=== PATIENT | male | born 1965 | race African-American/Black ===

== ENCOUNTER 2016-12-01 06:34 | Observation (INO) | payer MEDICARE, MEDICAID ==
[~2016-12-01] VITALS: Ht 185.4 cm; Wt 69.3 kg
[~2016-12-01 06:34] MED LIST: ASPI-515 PO; ASPI-650 PO; BUSP5TAB2 PO; CEPH-368 PO; DIAZ2TAB PO; LEVO500T33 PO; LEVO750T26 PO; LOSA25TA2 PO; LOSA25TA5 PO; NICO1PAT5 TD; OMEP-110 PO; ONDA4TAB10 PO; OXYC-302 PO; OXYC1TAB7 PO; OXYC30TA66 PO; OXYC5CAP4 PO; PREG25CA PO; SACC250C PO; SUCR1ORA2 PO; TRAZ100T15 PO; ZOLP10TA PO
[2016-12-01] MEDS ORDERED: LORazepam 1MG TABLET PO ONE (07:30)
[2016-12-01] MEDS ORDERED: LORazepam 1MG TABLET ONE (08:11)
[2016-12-01] MEDS ORDERED: IBUPROFEN 200 MG TABLET ONE (08:26)
[2016-12-01] MEDS ORDERED: IBUPROFEN 200 MG TABLET PO ONE (08:30)
[2016-12-01] MEDS ORDERED: ONDANSETRON ODT 4 MG PO ONE (09:00)
[2016-12-01] MEDS ORDERED: ONDANSETRON ODT 4 MG ONE (09:21)
[2016-12-01] MEDS ORDERED: SODIUM CHLORIDE FLUSH 10ML SYR IVF ONE (10:00)
[2016-12-01] MEDS ORDERED: SODIUM CHLORIDE 0.9% 1,000ML IVBOLUS ONE (10:00)
[2016-12-01 10:12] LABS: ASPARTATE AMINO TRANSFERASE 46 U/L (15-37); BLOOD UREA NITROGEN 4 mg/dL (7-18)
[2016-12-01] MEDS ORDERED: ONDANSETRON 2MG/ML, 2ML IVPush ONE (10:30)
[2016-12-01] MEDS ORDERED: ONDANSETRON 2MG/ML, 2ML ONE (10:46)
[2016-12-01] MEDS ORDERED: FAMOTIDINE 20 MG/2 ML IVPush ONE (11:00)
[2016-12-01] MEDS ORDERED: FAMOTIDINE 20 MG/2 ML ONE (11:12)
[2016-12-01] MEDS ORDERED: MORPHINE SULFATE 4 MG/ML, 1ML ONE (11:26)
[2016-12-01] MEDS ORDERED: MORPHINE SULFATE 4 MG/ML, 1ML IVPush PRN (11:30)
[2016-12-01] MEDS ORDERED: PROMETHAZINE 25 MG/ML, 1ML ONE (11:35)
[2016-12-01] MEDS ORDERED: PROMETHAZINE 25 MG/ML, 1ML IM ONE (12:00)
[2016-12-01] MEDS ORDERED: ACETAMINOPHEN 325 MG TABLET PO PRN (12:30)
[2016-12-01] MEDS ORDERED: HYDROcodone/APAP 5/325 TABLET PO PRN (12:30)
[2016-12-01] MEDS ORDERED: LABETALOL 5MG/ML, 20ML IVPush PRN (12:30)
[2016-12-01] MEDS ORDERED: OMNIPAQUE 350 MG/ML, 100ML BOTTLE ONE (13:23)
[2016-12-01 13:52] VITALS: BP 158/94
[2016-12-01] MEDS: ONDANSETRON 2MG/ML, 2ML IVPush PRN (14:19)
[2016-12-01] MEDS: morphine SULFATE 10 MG/ML, 1ML IVPush PRN ×3 (14:20→21:09)
[2016-12-01] MEDS ORDERED: NS + 20MEQ KCL 1,000 ML IV SCH (14:30)
[2016-12-01 17:20] LABS: OCCBLD OBC PASS
[2016-12-01] MEDS: SUCRALFATE 1 GM/10 ML UDC PO SCH ×2 (17:44→21:08)
[2016-12-01 20:02] VITALS: BP 160/99
[2016-12-01] MEDS: NICOTINE 21 MG/24 HR PATCH.TD24 TD SCH (21:09)
[2016-12-02] MEDS: morphine SULFATE 10 MG/ML, 1ML IVPush PRN ×3 (00:07→06:21)
[2016-12-02] MEDS: ONDANSETRON 2MG/ML, 2ML IVPush PRN ×2 (00:07→06:20)
[2016-12-02 01:18] VITALS: BP 144/95
[2016-12-02 05:44] LABS: BLOOD UREA NITROGEN 3 mg/dL (7-18)
[2016-12-02 06:56] VITALS: BP 141/91
[2016-12-02] MEDS ORDERED: PANTOPRAZOLE 40 MG IV IVPush SCH (07:30)
[2016-12-02] MEDS: NICOTINE 21 MG/24 HR PATCH.TD24 TD SCH (07:39)
[2016-12-02] MEDS: SUCRALFATE 1 GM/10 ML UDC PO SCH ×2 (07:39→10:27)
[2016-12-02] MEDS ORDERED: ONDA4TAB10 PO (08:13)
[2016-12-02] MEDS ORDERED: OMEP-110 PO (08:28)
== END 2016-12-02 12:14 | disposition home or self-care (01) ==
LOC: ED 07:35 → EDIP 11:58 → INTOOBSV 11:58 → UNDOADMOB 11:58 → EDIP 12:30 → 3NE 14:09
PROVIDERS: ADMIT Internal Medicine; ATTEND Internal Medicine
DX: K92.0 Hematemesis (principal); R19.7 Diarrhea, unspecified; F31.9 Bipolar disorder, unspecified; B19.20 Unspecified viral hepatitis C without hepatic coma; F10.10 Alcohol abuse, uncomplicated; F17.210 Nicotine dependence, cigarettes, uncomplicated; K25.9 Gastric ulcer, unspecified as acute or chronic, without hemorrhage or perforation; I11.9 Hypertensive heart disease without heart failure; M50.30 Other cervical disc degeneration, unspecified cervical region; M51.36 Other intervertebral disc degeneration, lumbar region; Z87.11 Personal history of peptic ulcer disease; Z91.19 Patient's noncompliance with other medical treatment and regimen; Z89.512 Acquired absence of left leg below knee; Z89.511 Acquired absence of right leg below knee
CPT/HCPCS: 36415; 71020; 72110; 72190; 74177; 80048; 80053; 81003; 82272; 83690; 85014; 85018; 85025; 87324; 96361; 96372; 96374; 96375; 96376; 99285; C9113; G0378; J2270; J2405; J2550; J3480; J7030; Q0162; Q9967; S0028

== ENCOUNTER 2017-01-10 20:29 | Emergency (ER) | payer MEDICARE, MEDICAID ==
[~2017-01-10] VITALS: Ht 185.4 cm; Wt 72.0 kg
[2017-01-10] MEDS ORDERED: OXYcodone/APAP 10/325MG TABLET ONE (22:15)
[2017-01-10] MEDS ORDERED: OXYcodone/APAP 10/325MG TABLET PO ONE (22:30)
[2017-01-10] MEDS ORDERED: BACITRACIN OINT 500U/GM, 15 GM TP ONE (22:30)
[2017-01-10] MEDS ORDERED: BACITRACIN ZINC OINT 500U/GM, 0.9 GM ONE (22:41)
[2017-01-10 23:08] VITALS: BP 116/69
== END 2017-01-10 23:09 | disposition home or self-care (01) ==
LOC: ED 21:34
DX: M25.561 Pain in right knee (principal); M25.562 Pain in left knee; L89.899 Pressure ulcer of other site, unspecified stage; Z89.512 Acquired absence of left leg below knee; Z89.511 Acquired absence of right leg below knee; I11.0 Hypertensive heart disease with heart failure; I50.9 Heart failure, unspecified; Z90.5 Acquired absence of kidney
CPT/HCPCS: 82962; 99283

== ENCOUNTER 2017-05-20 17:16 | Inpatient (IN) | payer MEDICARE, MEDICAID ==
[~2017-05-20] VITALS: Ht 185.4 cm; Wt 73.7 kg
[~2017-05-20 17:16] MED LIST changes: -LEVO500T33 PO; +LEVO500T47 PO; +NICO-487 TD; -NICO1PAT5 TD; +OXYC5CAP2 PO; -OXYC5CAP4 PO; -SACC250C PO; +SACC250C4 PO; -SUCR1ORA2 PO; +SUCR1ORA5 PO
[2017-05-20] MEDS ORDERED: SODIUM CHLORIDE FLUSH 10ML SYR IVF ONE (17:30)
[2017-05-20] MEDS ORDERED: LABETALOL 5MG/ML, 20ML IVPush ONE (18:00)
[2017-05-20] MEDS ORDERED: SODIUM CHLORIDE 0.9% 1,000ML IVBOLUS ONE ×2 (18:00→18:30)
[2017-05-20] MEDS ORDERED: PLEASE ENTER HEIGHT MC SCH (18:00)
[2017-05-20 18:12] LABS: HEMOGLOBIN 15.8 g/dL (13.7-18.0); WHITE BLOOD COUNT 11.3 x10^3/uL (3.4-10)
[2017-05-20] MEDS ORDERED: morphine SULFATE 10 MG/ML, 1ML ONE ×2 (18:17→18:47)
[2017-05-20] MEDS ORDERED: ONDANSETRON 2MG/ML, 2ML ONE (18:17)
[2017-05-20] MEDS ORDERED: LABETALOL 5MG/ML, 20ML ONE (18:17)
[2017-05-20] MEDS: MORPHINE SULFATE 4 MG/ML, 1ML IVPush PRN ×2 (18:21→18:50)
[2017-05-20 18:23] LABS: BLOOD UREA NITROGEN 6 mg/dL (7-18)
[2017-05-20] MEDS ORDERED: OMNIPAQUE 350 MG/ML, 100ML BOTTLE ONE (18:29)
[2017-05-20] MEDS ORDERED: ONDANSETRON 2MG/ML, 2ML IVPush ONE (18:30)
[2017-05-20 18:35] LABS: IS PT STATUS REG ER OR PRE ER? YES
[2017-05-20] MEDS ORDERED: morphine SULFATE 10 MG/ML, 1ML IV PRN (19:00)
[2017-05-20] MEDS ORDERED: LORazepam 2 MG/ML, 1ML IVPush PRN (19:00)
[2017-05-20] MEDS ORDERED: NITROGLYCERIN 0.4 MG/SPRAY SL PRN (19:00)
[2017-05-20] MEDS ORDERED: FAMOTIDINE 20 MG/2 ML IVPush ONE (19:00)
[2017-05-20] MEDS ORDERED: NICOTINE 14MG/24 HR PATCH.TD24 TD ONE (19:00)
[2017-05-20] MEDS ORDERED: THIAMINE 100MG TABLET PO ONE (19:00)
[2017-05-20] MEDS ORDERED: hydrALAzine 20 MG/ML, 1ML IV PRN (19:00)
[2017-05-20 19:36] LABS: IS PT STATUS REG ER OR PRE ER? YES
[2017-05-20 21:05] VITALS: BP 164/68
[2017-05-20 21:38] VITALS: BP 139/95
[2017-05-20] MEDS: NITROGLYCERIN 0.4 MG BOTTLE (25 TABS) SL PRN ×2 (21:46→21:54)
[2017-05-20 21:51] VITALS: BP 104/74
[2017-05-20 21:59] VITALS: BP 107/70
[2017-05-20] MEDS: SODIUM CHLORIDE FLUSH 10ML SYR IVF SCH (22:23)
[2017-05-20 22:50] LABS: IS PT STATUS REG ER OR PRE ER? NO
[2017-05-20] MEDS: morphine SULFATE 10 MG/ML, 1ML IV PRN (23:13)
[2017-05-21 01:24] LABS: IS PT STATUS REG ER OR PRE ER? NO
[2017-05-21 01:42] VITALS: BP 125/82
[2017-05-21] MEDS ORDERED: ASPIRIN 325 MG TABLET ONE (03:11)
[2017-05-21] MEDS ORDERED: ASPIRIN 325 MG TABLET EC ONE (03:13)
[2017-05-21] MEDS: morphine SULFATE 10 MG/ML, 1ML IV PRN ×3 (03:18→09:57)
[2017-05-21] MEDS: ASPIRIN 325 MG TABLET EC PO SCH (03:18)
[2017-05-21] MEDS ORDERED: REGADENOSON 0.4 MG/5 ML SYRINGE ONE (07:36)
[2017-05-21 08:28] VITALS: BP 134/88
[2017-05-21] MEDS: SODIUM CHLORIDE FLUSH 10ML SYR IVF SCH ×2 (09:57→19:44)
[2017-05-21] MEDS: HYDROcodone/APAP 5/325 TABLET PO PRN ×2 (12:49→17:25)
[2017-05-21 13:59] VITALS: BP 157/90
[2017-05-21 19:18] VITALS: BP 129/86
[2017-05-21] MEDS ORDERED: GADOBUTROL 7.5 MMOL/7.5 ML PFS ONE (19:45)
[2017-05-22 01:57] VITALS: BP 119/86
[2017-05-22] MEDS: HYDROcodone/APAP 5/325 TABLET PO PRN (02:13)
[2017-05-22 06:11] LABS: HEMATOCRIT 45.5 % (39.2-51.8); HEMOGLOBIN 14.9 g/dL (13.7-18.0); WHITE BLOOD COUNT 8.2 x10^3/uL (3.4-10)
[2017-05-22 06:31] LABS: ASPARTATE AMINO TRANSFERASE 49 U/L (15-37); BLOOD UREA NITROGEN 10 mg/dL (7-18)
[2017-05-22 07:19] VITALS: BP 125/87
[2017-05-22] MEDS: OXYcodone/APAP 10/325MG TABLET PO PRN ×3 (08:19→16:03)
[2017-05-22] MEDS: SODIUM CHLORIDE FLUSH 10ML SYR IVF SCH (08:19)
[2017-05-22] MEDS: ASPIRIN 325 MG TABLET EC PO SCH (08:19)
[2017-05-22] MEDS ORDERED: OXYC1TAB9 PO (14:10)
[2017-05-22] MEDS ORDERED: ASPI-496 PO (14:10)
[2017-05-22 14:15] VITALS: BP 132/91
[2017-05-22] MEDS ORDERED: FLU VACC QS2017-18 (36MOS+) UP/PF 0.5 ML IM-VACC ONE (14:30)
== END 2017-05-22 16:36 | disposition home or self-care (01) | DRG 304 ==
LOC: ED 18:50 → EDIP 18:53 → 5SO 20:03
PROVIDERS: ADMIT Family Medicine; ATTEND Family Medicine
DX: I16.9 Hypertensive crisis, unspecified (principal); I63.9 Cerebral infarction, unspecified; M48.54XA Collapsed vertebra, not elsewhere classified, thoracic region, initial encounter for fracture; I11.0 Hypertensive heart disease with heart failure; I50.9 Heart failure, unspecified; R07.89 Other chest pain; D72.829 Elevated white blood cell count, unspecified; G89.4 Chronic pain syndrome; F17.210 Nicotine dependence, cigarettes, uncomplicated; F31.9 Bipolar disorder, unspecified; R29.6 Repeated falls; R29.810 Facial weakness; Z82.49 Family history of ischemic heart disease and other diseases of the circulatory system; Z87.11 Personal history of peptic ulcer disease; Z89.519 Acquired absence of unspecified leg below knee; Z90.5 Acquired absence of kidney; Z98.1 Arthrodesis status; Z88.8 Allergy status to other drugs, medicaments and biological substances; Z23 Encounter for immunization
CPT/HCPCS: 36415; 70553; 71010; 71275; 74175; 78452; 80048; 80053; 80061; 82040; 82607; 83605; 84484; 85025; 85651; 87324; 90686; 93005; 93017; 93880; 96361; 96374; 96375; A9585; J2405; J2785; Q9967; A9502; C9898; J2060; J2270; J7030; S0028

== ENCOUNTER 2017-07-07 18:30 | Emergency (ER) | payer MEDICARE, MEDICAID ==
[~2017-07-07] VITALS: Ht 185.4 cm; Wt 80.0 kg
[~2017-07-07 18:30] MED LIST changes: +ASPI-496 PO; +OXYC1TAB9 PO
[2017-07-07 22:15] VITALS: BP 97/70
== END 2017-07-07 23:09 | disposition home or self-care (01) ==
LOC: ED 23:03
DX: S16.1XXA Strain of muscle, fascia and tendon at neck level, initial encounter (principal); M47.892 Other spondylosis, cervical region; I10 Essential (primary) hypertension; G89.29 Other chronic pain; M54.9 Dorsalgia, unspecified; Z89.511 Acquired absence of right leg below knee; W01.0XXA Fall on same level from slipping, tripping and stumbling without subsequent striking against object, initial encounter; Y93.89 Activity, other specified; Y99.8 Other external cause status; Y92.89 Other specified places as the place of occurrence of the external cause
CPT/HCPCS: 93005; 99283

== ENCOUNTER 2017-08-10 15:25 | Emergency (ER) | payer MEDICARE, MEDICAID ==
[~2017-08-10] VITALS: Ht 177.8 cm; Wt 76.5 kg
[2017-08-10] MEDS ORDERED: KETOROLAC 30 MG/1 ML IM ONE (17:00)
[2017-08-10] MEDS ORDERED: KETOROLAC 30 MG/1 ML ONE (17:01)
[2017-08-10 18:50] VITALS: BP 144/98
== END 2017-08-10 18:52 | disposition home or self-care (01) ==
LOC: ED 18:46
DX: S80.811A Abrasion, right lower leg, initial encounter (principal); L03.115 Cellulitis of right lower limb; I50.9 Heart failure, unspecified; I11.0 Hypertensive heart disease with heart failure; G89.29 Other chronic pain; E78.5 Hyperlipidemia, unspecified; Z89.511 Acquired absence of right leg below knee; Z89.512 Acquired absence of left leg below knee; Z98.1 Arthrodesis status; X58.XXXA Exposure to other specified factors, initial encounter; Y93.89 Activity, other specified; Y92.89 Other specified places as the place of occurrence of the external cause; Y99.8 Other external cause status
CPT/HCPCS: 72050; 73564; 96372; 99284; J1885

== ENCOUNTER 2017-09-26 19:03 | Emergency (ER) | payer MEDICARE, MEDICAID ==
[~2017-09-26] VITALS: Ht 177.8 cm; Wt 70.0 kg
[2017-09-26] MEDS ORDERED: METHOCARBAMOL 750 MG TABLET ONE (19:56)
[2017-09-26] MEDS ORDERED: ONDANSETRON ODT 4 MG ONE (19:57)
[2017-09-26] MEDS ORDERED: METHOCARBAMOL 750 MG TABLET PO ONE (20:00)
[2017-09-26] MEDS ORDERED: ONDANSETRON ODT 4 MG PO ONE (20:00)
[2017-09-26 20:12] LABS: BASOPHILS # (AUTO) 0.04 x10^3/uL (0-0.1); BASOPHILS % (AUTO) 0 % (0-1); EOSINOPHILS # (AUTO) 0.37 x10^3/uL (0-0.4); EOSINOPHILS % (AUTO) 4 % (1-7); LYMPHOCYTES # (AUTO) 2.99 x10^3/uL (1-3.4); LYMPHOCYTES % (AUTO) 35 % (22-44); MD NO; MEAN CORPUSCULAR HEMOGLOBIN 29.2 pg (27.5-34.5); MEAN CORPUSCULAR VOLUME 88.5 fL (81-97); MEAN PLATELET VOLUME 8.8 fL (7.4-10.4); MONOCYTES # (AUTO) 0.58 x10^3/uL (0.2-0.8); MONOCYTES % (AUTO) 7 % (2-9); NEUTROPHILS % (AUTO) 53 % (42-75); PLATELET COUNT 346 x10^3/uL (130-400); RED BLOOD COUNT 4.48 x10^6/uL (4.38-5.82); RED CELL DISTRIBUTION WIDTH 16.7 % (9.4-14.8)
[2017-09-26 20:17] LABS: ALANINE AMINOTRANSFERASE 37 U/L (12-78); ALBUMIN 3.2 g/dL (3.4-5.0); ANION GAP 8 mmol/L (5-15); CHLORIDE 108 mmol/L (98-107); CREATININE 0.75 mg/dL (0.7-1.3)
[2017-09-26 20:19] LABS: ALKALINE PHOSPHATASE 70 U/L (45-117); BILIRUBIN,TOTAL 0.2 mg/dL (0.2-1.0)
[2017-09-26 21:49] VITALS: BP 120/83
== END 2017-09-26 21:55 | disposition home or self-care (01) ==
LOC: ED 20:19
DX: S39.012A Strain of muscle, fascia and tendon of lower back, initial encounter (principal); S16.1XXA Strain of muscle, fascia and tendon at neck level, initial encounter; F17.200 Nicotine dependence, unspecified, uncomplicated; F31.9 Bipolar disorder, unspecified; M51.36 Other intervertebral disc degeneration, lumbar region; X58.XXXA Exposure to other specified factors, initial encounter; Y93.89 Activity, other specified; Y99.8 Other external cause status; Y92.89 Other specified places as the place of occurrence of the external cause
CPT/HCPCS: 36415; 72110; 80053; 83690; 85025; 99285; Q0162

== ENCOUNTER 2017-09-29 11:20 | Emergency (ER) | payer MEDICARE, MEDICAID ==
[~2017-09-29] VITALS: Ht 177.8 cm; Wt 70.0 kg
[2017-09-29 12:47] LABS: MEAN CORPUSCULAR HEMOGLOBIN 28.2 pg (27.5-34.5); MEAN CORPUSCULAR HGB CONC 32.3 g/dL (33.2-36.2); MEAN CORPUSCULAR VOLUME 87.3 fL (81-97); MEAN PLATELET VOLUME 9.1 fL (7.4-10.4); PLATELET COUNT 335 x10^3/uL (130-400); RED BLOOD COUNT 4.32 x10^6/uL (4.38-5.82); RED CELL DISTRIBUTION WIDTH 16.6 % (9.4-14.8)
[2017-09-29 12:48] LABS: ALANINE AMINOTRANSFERASE 26 U/L (12-78); ALBUMIN 2.9 g/dL (3.4-5.0); ANION GAP 6 mmol/L (5-15); CALCIUM 8.6 mg/dL (8.5-10.1); CHLORIDE 110 mmol/L (98-107)
[2017-09-29 12:51] LABS: ALKALINE PHOSPHATASE 61 U/L (45-117); BILIRUBIN,TOTAL 0.3 mg/dL (0.2-1.0); CREATININE 0.62 mg/dL (0.7-1.3); TOTAL PROTEIN 7.1 g/dL (6.4-8.2)
[2017-09-29 13:20] VITALS: BP 112/72
[2017-09-29 13:23] LABS: BASOPHILS # (AUTO) 0.07 x10^3/uL (0-0.1); BASOPHILS % (AUTO) 1 % (0-1); EOSINOPHILS # (AUTO) 0.31 x10^3/uL (0-0.4); EOSINOPHILS % (AUTO) 5 % (1-7); LYMPHOCYTES # (AUTO) 2.63 x10^3/uL (1-3.4); LYMPHOCYTES % (AUTO) 44 % (22-44); MD NO; MONOCYTES # (AUTO) 0.35 x10^3/uL (0.2-0.8); MONOCYTES % (AUTO) 6 % (2-9); NEUTROPHILS # (AUTO) 2.66 x10^3/uL (1.8-6.8); NEUTROPHILS % (AUTO) 44 % (42-75)
== END 2017-09-29 14:26 | disposition home or self-care (01) ==
LOC: ED 13:09
DX: R10.84 Generalized abdominal pain (principal); M51.36 Other intervertebral disc degeneration, lumbar region; M51.26 Other intervertebral disc displacement, lumbar region; Z79.899 Other long term (current) drug therapy; F31.9 Bipolar disorder, unspecified; G89.29 Other chronic pain; Z89.512 Acquired absence of left leg below knee
CPT/HCPCS: 36415; 74021; 80053; 80307; 83690; 85025; 99285

== ENCOUNTER 2017-10-31 07:16 | Emergency (ER) | payer MEDICARE, MEDICAID ==
[~2017-10-31] VITALS: Ht 177.8 cm; Wt 69.0 kg
[2017-10-31] MEDS ORDERED: METOCLOPRAMIDE 5 MG/ML, 2ML ONE (07:54)
[2017-10-31] MEDS ORDERED: KETOROLAC 30 MG/1 ML ONE (07:54)
[2017-10-31] MEDS ORDERED: FAMOTIDINE 20 MG/2 ML ONE (07:54)
[2017-10-31] MEDS ORDERED: FAMOTIDINE 20 MG/2 ML IVP ONE (08:00)
[2017-10-31] MEDS ORDERED: METOCLOPRAMIDE 5 MG/ML, 2ML IVPush ONE (08:00)
[2017-10-31] MEDS ORDERED: KETOROLAC 30 MG/1 ML IVPush ONE (08:00)
[2017-10-31] MEDS ORDERED: SODIUM CHLORIDE 0.9% 1,000ML IVBOLUS ONE (08:00)
[2017-10-31] MEDS ORDERED: SODIUM CHLORIDE FLUSH 10ML SYR IVF ONE (08:00)
[2017-10-31 08:34] VITALS: BP 149/104
[2017-10-31 08:42] LABS: ALANINE AMINOTRANSFERASE 39 U/L (12-78); ALBUMIN 3.2 g/dL (3.4-5.0); ANION GAP 8 mmol/L (5-15); CALCIUM 8.7 mg/dL (8.5-10.1); CHLORIDE 112 mmol/L (98-107); CREATININE 0.69 mg/dL (0.7-1.3)
[2017-10-31 08:45] LABS: ALKALINE PHOSPHATASE 63 U/L (45-117); BASOPHILS # (AUTO) 0.07 x10^3/uL (0-0.1); BASOPHILS % (AUTO) 1 % (0-1); BILIRUBIN,TOTAL 0.5 mg/dL (0.2-1.0); EOSINOPHILS # (AUTO) 0.13 x10^3/uL (0-0.4); EOSINOPHILS % (AUTO) 2 % (1-7); LYMPHOCYTES % (AUTO) 40 % (22-44); MD NO; MEAN CORPUSCULAR HEMOGLOBIN 28.2 pg (27.5-34.5); MEAN CORPUSCULAR HGB CONC 32.9 g/dL (33.2-36.2); MEAN CORPUSCULAR VOLUME 85.5 fL (81-97); MEAN PLATELET VOLUME 9.5 fL (7.4-10.4); MONOCYTES # (AUTO) 0.44 x10^3/uL (0.2-0.8); MONOCYTES % (AUTO) 7 % (2-9); NEUTROPHILS # (AUTO) 3.06 x10^3/uL (1.8-6.8); NEUTROPHILS % (AUTO) 49 % (42-75); PLATELET COUNT 238 x10^3/uL (130-400); RED BLOOD COUNT 4.45 x10^6/uL (4.38-5.82); RED CELL DISTRIBUTION WIDTH 15.4 % (9.4-14.8); TOTAL PROTEIN 6.9 g/dL (6.4-8.2)
== END 2017-10-31 10:01 | disposition home or self-care (01) ==
LOC: ED 09:22
DX: A08.39 Other viral enteritis (principal); S39.012A Strain of muscle, fascia and tendon of lower back, initial encounter; F31.9 Bipolar disorder, unspecified; I10 Essential (primary) hypertension; Z89.511 Acquired absence of right leg below knee; X58.XXXA Exposure to other specified factors, initial encounter; Y93.89 Activity, other specified; Y99.8 Other external cause status; Y92.89 Other specified places as the place of occurrence of the external cause
CPT/HCPCS: 36415; 76700; 80053; 83690; 85025; 93005; 96361; 96374; 96375; 99285; J1885; J2765; J7030; S0028